=== PATIENT | female | born 1950 | race Caucasian/White ===

== ENCOUNTER 2016-07-19 09:50 | Outpatient (CLI) | payer OTHER ==
--- NOTE | 2016-07-19 10:40 | DIAGNOSTIC IMAGING REPORT ---
PROCEDURE: DEXA BONE DENSITY STUDY CLINICAL INDICATION: POSTMENOPAUSAL COMPARISON: None. FINDINGS: LUMBAR SPINE: Bone mineral density 0.883 g/cm2, T score -1.5 osteopenia LEFT HIP: Bone mineral density 0.813 g/cm2, T score -1.1 osteopenia LEFT FEMORAL NECK: Bone mineral density 0.582 g/cm2, T score -2.4 osteopenia FRACTURE RISK CALCULATION ( when applicable): 10-year fracture risk of a major osteoporotic fracture 12% and of a hip fracture 2.2% (T score greater or equal to -1.0 to: NORMAL) (T score from -1.1 to -2.4: OSTEOPENIA) (T score ess than or equal to -2.5: OSTEOPOROSIS) IMPRESSION: 1. Osteopenia spine hip and femoral neck. 10-year fracture risk 12% and hip fracture risk 2.2%
== END 2016-07-19 23:00 ==
LOC: XR SRH 09:50
DX: M85.89 Other specified disorders of bone density and structure, multiple sites (principal); Z78.0 Asymptomatic menopausal state

== ENCOUNTER 2016-07-26 11:32 | Outpatient (CLI) | payer OTHER ==
--- NOTE | 2016-07-26 12:16 | DIAGNOSTIC IMAGING REPORT ---
PROCEDURE: US SOFT TISSUE THYR/NECK/HEAD INDICATION: Goiter, 30 years of hypothyroidism. TECHNIQUE: Andrews scale and color Doppler sonographic images of the thyroid gland were obtained. COMPARISON: None. FINDINGS: The right thyroid lobe measures proximally 2.7 x 0.7 x 0.4 cm. The left thyroid lobe measures proximally 2.4 x 0.9 x 1.1 cm. The isthmus measures 2 mm in thickness. Diffuse atrophy and mild irregularity of the gland morphology. The gland is mildly hypoechoic with irregular the bands of internal echogenicity bilaterally. No suspicious dominant mass or cyst. There is overall decreased vascularity to the gland. No adjacent adenopathy. IMPRESSION: 1. Atrophied, irregular, thyroid gland without suspicious nodule or cyst. Findings are consistent with chronic thyroid suppression.
== END 2016-07-26 23:00 | disposition home or self-care (01) ==
LOC: US SRH 11:32
DX: E03.4 Atrophy of thyroid (acquired) (principal)